=== PATIENT | male | born 1965 | race Caucasian/White ===

== ENCOUNTER 2025-04-18 09:20 | Outpatient (AMB) | payer OTHER, SELFPAY ==
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
[2025-04-18 09:31] VITALS: BMI 29.4
== END 2025-04-18 09:56 | disposition home or self-care (01) ==
LOC: HO.HPHYS 09:20
PROVIDERS: PCP Physician Assistant Medical; Visit Provider Physician Assistant
DX: M54.2 Cervicalgia (principal); G56.03 Carpal tunnel syndrome, bilateral upper limbs
CPT/HCPCS: 20526; 99203

== ENCOUNTER → 2025-04-18 09:20 | Outpatient (BNVA) | payer OTHER, SELFPAY | PROVIDERS: PCP Physician Assistant Medical; Visit Provider Physician Assistant | DX: G56.03 Carpal tunnel syndrome, bilateral upper limbs (principal); M54.2 Cervicalgia | CPT/HCPCS: 20526; J3301 ==